=== PATIENT | female | born 1935 | race Caucasian/White ===

== ENCOUNTER 2016-06-05 20:33 | Observation (INO) ==
[2016-06-05] MEDS ORDERED: ONDANSETRON 4 MG/2 ML VIAL IV STA (21:01)
[2016-06-05] MEDS ORDERED: METOCLOPRAMIDE 10 MG/2 ML VIAL IV STA (21:01)
--- NOTE | 2016-06-05 21:14 | EKG Report ---
Please refer to the EKG image. Final interpretation is pending.
[2016-06-05 21:16] LABS: Basophils # 0.1 10*3/uL (0.0-0.2); Basophils % 0.6 % (0.0-0.8); Eosinophils # 0.1 10*3/uL (0.0-0.87); Eosinophils % 1.5 % (0.00-10.9); Hematocrit 39.5 VOL% (35.7-47.0); Hemoglobin 12.5 GM/DL (12.0-16.0); Immature Granulocytes % 0.2 %; Immature Granulocytes Absolute 0.02 #; Lymphocytes # 1.9 10*3/uL (1.4-4.0); Lymphocytes % 23.8 % (21.3-54.2); Mean Corpuscular HGB Conc 31.6 GM/DL (32-36); Mean Corpuscular Hemoglobin 28 PG (27-34); Mean Platelet Volume 10.4 FL (9.6-12.0); Monocytes # 0.5 10*3/uL (0.11-0.8); Monocytes % 6.7 % (1.7-12.7); Neutrophils # 5.4 10*3/uL (1.4-7.4); Neutrophils % 67.2 % (38.7-73.9); Platelet Count 253 T/CUMM (130-400); Red Blood Count 4.49 MC/CUMM (3.8-5.5); Red Cell Distribution Width 14.1 % (9.3-17.3)
--- NOTE | 2016-06-05 21:20 | Emergency Department Note ---
Arrival - Arrival Chief Complaint: Neuro Stated Complaint: Possible Stroke ED Nursing Triage Note: c/c at 19:30 pt states she got up from chair and felt very weak/unsteady gait, dizziness, had trouble with thought process. Had trouble concentrating. Pt states she feels a little better but not completely normal. Pt has history of TIA's. Memory was affected by previous TIA's. Mode of Arrival: Wheelchair Limitations: No Limitations Source: Patient Time Seen by Provider: 06/05/16 21:00 - History of Present Illness HPI Narrative: This 81-year-old white female presents with complaints of getting up from her chair to prepare dinner when she felt very weak, dizzy, and had an unsteady gait. She states that she had problems likewise with thought processes and concentrating. She feels somewhat better now and does have a history of several TIAs in the past. She does associate some shortness of breath and nausea transiently when she first got out of the chair but no complaints of chest pain or diaphoresis. Of note she took a [place] about a half hour before she sat down because of foot pain. Currently she is alert and oriented 3. Onset (ago): hour(s) (Patient presents 2 hours post onset of symptoms) Allergies/Adverse Reactions: Allergies Allergy/AdvReac Type Severity Reaction Status Date / Time Sulfa (Sulfonamide Allergy Unknown/Unable Verified 06/05/16 20:44 Antibiotics) to obtain Home Medications: Home Medications Medication Instructions Recorded Confirmed Type PARoxetine [Paxil] 20 mg PO DAILY 10/10/14 06/05/16 History Pravastatin [Pravachol] 40 mg PO DAILY 10/10/14 06/05/16 History Tolterodine LA [Detrol LA] 4 mg PO DAILY 10/10/14 06/05/16 History Aspirin EC Tab 325 mg PO DAILY 05/27/16 06/05/16 History Diltiazem HCl [Dilt-Xr] 180 mg PO DAILY 05/27/16 06/05/16 History Furosemide Tab [Lasix Tab] 20 mg PO BID DIURETIC 05/27/16 06/05/16 History Hydrocodone/Acetaminophen 1 each PO DAILY 05/27/16 06/05/16 History [Hydrocodon-Acetaminophen 5-325] Lactulose 10 - 20 ml PO BEDTIME PRN 05/27/16 06/05/16 History Omeprazole 20 mg PO DAILY 05/27/16 06/05/16 History Potassium Chloride Cap/Tab [K Dur] 20 meq PO DAILY 05/27/16 06/05/16 History Promethazine Tab [Phenergan Tab] 25 mg PO Q6H PRN 05/27/16 06/05/16 History metFORMIN [Glucophage] 500 mg PO BID W/MEALS 05/27/16 06/05/16 History rOPINIRole [Requip] 0.25 mg PO BEDTIME 05/27/16 06/05/16 History Polyethylene Glycol Powder 17 gm PO DAILY #30 05/28/16 06/05/16 Rx [Miralax] Review of System - Review of System 12 point system: reviewed and no additional remarkable complaints except as stated - Review of System Constitutional: Present: as per HPI Respiratory: Present: as per HPI Cardiovascular: Present: as per HPI Gastrointestinal: Present: as per HPI Neurological: Present: as per HPI Medical,Surgical,& Family Hx - Medical History Cardio: History of: Cardiac Dysrhythmia (AFIB), CAD, Pacemaker Neurology: History of: Cerebrovascular Accident (3), TIA Endocrine: History of: Diabetes Mellitus (NIDDM) Genitourinary: History of: Recurring Urinary Tract Infections Gastrointestinal: History of: Diverticulitis/ Diverticulosis, GERD, GI Problems (constipation) Musculoskeletal: History of: Musculoskeletal Problems (arthritis) Hematology: History of: Anemia, Bleeding Problems (40yrs ago bleeding ulcers in stomach) Other: History of: Cancer (uterine cancer 1968) - Surgical History Cardiac Surgeries: Sugical HX of: Cardiac Catheterization Abdominal Surgeries: Surgical HX of: Abdominal Surgery, Cholecystectomy Reproductive Surgeries: Surgical HX of;: Hysterectomy Orthopedic Surgeries: Surgical HX of;: Total Knee Replacement (x3) - Family History Family History: Reports;: Family Cancer (brother,sister), Family Diabetes (mom, sisters,brothers), Family Hypertension (mother), Family Stroke (mother) - Social History Smoking Status: Former smoker Frequency of Alcohol Use: None Type of Drug Use: None Exam Physical Examination: GENERAL: Well developed, well nourished elderly white female in no acute distress. HEENT: Normocephalic. No trauma. Moist mucous membranes. EOMI. PERRLA. ENT NML NECK: Supple. No adenopathy. CARDIAC: Irregular. No murmurs. Heart rate 88 CHEST: Clear to auscultation. No respiratory distress. O2 sat 95% ABDOMEN: Soft. Nontender. Active bowel sounds. EXTREMITIES: No trauma. Normal ROM. No pedal edema. SKIN: No diaphoresis. No rash. NEURO: Alert. Oriented 3. Motor, sensory, vibratory intact. No nystagmus. No focal deficits. Vital Signs: Vital Signs Temperature 98.7 F 06/05/16 20:36 Pulse Rate 86 06/05/16 20:36 Respiratory Rate 20 06/05/16 20:50 Blood Pressure 135/72 06/05/16 20:36 O2 Sat by Pulse Oximetry 95 06/05/16 20:36 Course - Reevaluation(s) Reevaluation #1: Discussed with family and she is yet to have an MRI of the brain and this being of a chronic nature we will admit overnight for MRI - Consultations Consultation #1: Discussed with hospitalist service who will admit for further evaluation treatment. Results - Labs CBC & BMP: 06/05/16 20:53 06/05/16 20:53 Labs: I reviewed the laboratory noted its gross normality. - Impressions EKG: Atrial fibrillation 88 with right bundle branch block and left anterior block with moderate LVH with diffuse nonspecific ST changes. No acute injury pattern noted. - Diagnostic Findings Procedure: Chest x-ray: image reviewed by me, report reviewed by me, pending ( Cardiomegaly with pacemaker noted no acute disease), CT: image reviewed by me, report reviewed by me (CT head microvascular ischemic disease) Disposition Clinical Impression: TIA Case discussed with: patient, patient's family Disposition: Still a Patient Condition: Stable Time of Disposition: 23:05
[2016-06-05 21:29] LABS: INR 1.1; PT Patient Result 11.2 SECS; Partial Thromboplastin Time 25.9 SECS (0-40)
[2016-06-05 21:36] LABS: Alanine Aminotransferase 15 U/L (13-56); Albumin 3.9 G/DL (3.4-5.0); Alkaline Phosphatase 94 U/L (45-117); Aspartate Amino Transferase 15 U/L (0-37); Blood Urea Nitrogen 19 MG/DL (7-18); Calcium 8.6 MG/DL (8.5-10.1); Glucose 160 MG/DL (74-106); Osmolality,Calculated 283.4 MOS/KG (273-304); Potassium 3.7 MMOL/L (3.5-5.1); Sodium 140 MMOL/L (136-145); Total Protein 7.5 G/DL (6.4-8.3); Troponin I Only < 0.015 NG/ML (0.00-0.045)
--- NOTE | 2016-06-05 21:38 | CT Report ---
Exam: CT scan of brain without contrast Date: 06/05/2016 Indication: Mental status changes Comparison: 10/10/2014 Patient's classification: Emergency department Technical: Images were obtained from the skull base to the vertex without the use of intravenous contrast. Dose reduction was performed with decreasing kv and mA and automated exposure Total DLP: 1012.1 mGy*cm Findings: There is small vessel changes in the periventricular subcortical white matter region. The exam reveals no obvious acute hemorrhage or infarction or mass effect. The ventricles are slightly prominent. The brainstem cerebellum are intact. The paranasal sinuses globes and sella mastoids are intact. Vascular calcification of the vertebral and internal carotid arteries. Impression: 1. Small vessel ischemic change without acute hemorrhage, infarction or mass effect. PROCEDURE INTERPRETED AT [facility] DEPARTMENT OF RADIOLOGY Final Report Signed by: Dr. Meng Mejia
[2016-06-05] MEDS ORDERED: ONDANSETRON 4 MG/2 ML VIAL ONE (22:01)
[2016-06-05] MEDS ORDERED: METOCLOPRAMIDE 10 MG/2 ML VIAL ONE (22:01)
--- NOTE | 2016-06-05 22:03 | XRay Report ---
Exam: XR chest 1V portable Date: 06/05/2016 9:01 PM Indication: Altered mental status Comparison: 10/10/2014 Technical: AP portable Findings: Cardiomegaly is present with a left-sided cardiac pacing device with atrial ventricular leads. No obvious infiltrate or effusion. Lateral marginal osteophytes are present. Previous cholecystectomy clips are present. External cardiac leads are present. No obvious pneumothorax Impression: 1. Cardiomegaly with stable cardiac pacing device without decompensation 2. Previous cholecystectomy PROCEDURE INTERPRETED AT [facility] DEPARTMENT OF RADIOLOGY Final Report Signed by: Dr. Meng Mejia
[2016-06-05 22:26] LABS: Apearance,Urine CLEAR (Clear); Bilirubin,Urine Negative (Negative); Blood, Urine Moderate mg/dL (Negative); Glucose,Urine (UA) Negative (Negative); Hyaline Casts,Urine 5 /LPF (0-3); Ketones,Urine Negative (Negative); Nitrite,Urine Negative (Negative); Protein,Urine Negative; RBC,Urine 4 /HPF (0-4); Urine Color Yellow (Yellow); Urine Specific Gravity 1.009 (1.001-1.035); Urine Urobilinogen < 2.0 EU/DL (0.2-1.0); WBC,Urine 1 /HPF (0-6)
[2016-06-05 22:31] LABS: Barbiturates Screen,Urine Negative (Negative); Benzodiazepines Screen,Urine Negative (Negative); Cannabinoid Screen,Urine Negative (Negative); Opiate Screen,Urine Positive (Negative); Phencyclidine Screen,Urine Negative (Negative)
[2016-06-06] MEDS ORDERED: POLYETHYLENE GLYCOL POWDER 17 GM PACK PO PRN (00:27)
[2016-06-06] MEDS ORDERED: LACTULOSE 20 GM/30 ML UDCUP PO PRN (00:27)
[2016-06-06] MEDS ORDERED: ONDANSETRON 4 MG/2 ML VIAL IV PRN (00:28)
[2016-06-06] MEDS ORDERED: ACETAMINOPHEN 325 MG TABLET PO PRN (00:28)
[2016-06-06] MEDS ORDERED: LABETALOL 20 MG/4 ML SYRINGE IV PRN (00:34)
[2016-06-06] MEDS ORDERED: GLUCAGON 1 MG VIAL IM PRN (00:38)
[2016-06-06] MEDS ORDERED: DEXTROSE 50% 25 GM/50 ML VIAL IV PRN (00:38)
--- NOTE | 2016-06-06 00:43 | Hospitalist History & Physical ---
Assessment and Plan (1) Transient ischemic attack, acute Status: Acute Current Visit: Yes (2) Dysarthria Status: Acute Current Visit: Yes (3) Positive urine drug screen Status: Acute Current Visit: Yes (4) Chronic atrial fibrillation Status: Acute Current Visit: Yes (5) Pacemaker Status: Acute Current Visit: Yes (6) Type 2 diabetes mellitus Status: Acute Current Visit: Yes (7) History of TIA (transient ischemic attack) Status: Acute Assessment and plan: Plan: Stroke workup, excluding MRI due to pacemaker. Will obtain carotid Dopplers, CT angiogram of the head and neck. Get most recent echo from Dr. Holland's records. Hold opioid medication, according to patient and daughter patient rarely takes this. Could be contributing factor to her symptoms. Observe on heart monitor Resume home medication as appropriate, otherwise supportive care. Current Visit: Yes History of Present Illness Chief complaint: Weakness starting around 4:30 PM History of present illness: Ms. Chapman is a 81 year old female with history of A. 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 She states she woke up with nausea but no vomiting. She did not fall, she denies vertigo. She denies unilateral weakness, headache, or vision loss. Apparently, a few hours later she called her daughter at which time the daughter reports she had slurred speech and she was brought to the emergency room. Daughter also reports the patient had to use her 's walker, "which she never has in the past." Additionally she has significant arthritis and very rarely takes opioid medication, which was found on drug screen. According to the daughter it is unclear whether this caused her slurred speech and generalized weakness. CT in the ER does not show acute bleed or stroke. She denies chest pain, difficulty breathing, abdominal pain, or diarrhea. No fever chills or cough. Home Medications Medication Instructions Recorded Confirmed Type PARoxetine [Paxil] 20 mg PO DAILY 10/10/14 06/05/16 History Pravastatin [Pravachol] 40 mg PO DAILY 10/10/14 06/05/16 History Tolterodine LA [Detrol LA] 4 mg PO DAILY 10/10/14 06/05/16 History Aspirin EC Tab 325 mg PO DAILY 05/27/16 06/05/16 History Diltiazem HCl [Dilt-Xr] 180 mg PO DAILY 05/27/16 06/05/16 History Furosemide Tab [Lasix Tab] 20 mg PO BID DIURETIC 05/27/16 06/05/16 History Hydrocodone/Acetaminophen 1 each PO DAILY 05/27/16 06/05/16 History [Hydrocodon-Acetaminophen 5-325] Lactulose 10 - 20 ml PO BEDTIME PRN 05/27/16 06/05/16 History Omeprazole 20 mg PO DAILY 05/27/16 06/05/16 History Potassium Chloride Cap/Tab [K Dur] 20 meq PO DAILY 05/27/16 06/05/16 History Promethazine Tab [Phenergan Tab] 25 mg PO Q6H PRN 05/27/16 06/05/16 History metFORMIN [Glucophage] 500 mg PO BID W/MEALS 05/27/16 06/05/16 History rOPINIRole [Requip] 0.25 mg PO BEDTIME 05/27/16 06/05/16 History Polyethylene Glycol Powder 17 gm PO DAILY #30 05/28/16 06/05/16 Rx [Miralax] Allergies Allergy/AdvReac Type Severity Reaction Status Date / Time Sulfa (Sulfonamide Allergy Unknown/Unable Verified 06/05/16 20:44 Antibiotics) to obtain Medical,Surgical,& Family Hx - Medical History Cardio: History of: Cardiac Dysrhythmia (AFIB), CAD, Pacemaker Neurology: History of: Cerebrovascular Accident (Reported history of "TIAs", old basal ganglia infarcts reported on [address] ), TIA Endocrine: History of: Diabetes Mellitus (NIDDM) Genitourinary: History of: Recurring Urinary Tract Infections Gastrointestinal: History of: Diverticulitis/ Diverticulosis, GERD, GI Problems (constipation) Musculoskeletal: History of: Musculoskeletal Problems (arthritis) Hematology: History of: Anemia, Bleeding Problems (40yrs ago bleeding ulcers in stomach) Other: History of: Cancer (uterine cancer 1968) - Surgical History Cardiac Surgeries: Sugical HX of: Cardiac Catheterization Abdominal Surgeries: Surgical HX of: Abdominal Surgery, Cholecystectomy Reproductive Surgeries: Surgical HX of;: Hysterectomy Orthopedic Surgeries: Surgical HX of;: Total Knee Replacement (x3) - Family History Family History: Reports;: Family Cancer (brother,sister), Family Diabetes (mom, sisters,brothers), Family Hypertension (mother), Family Stroke (mother) - Social History Smoking Status: Former smoker Have you smoked in the last 12 months: No Frequency of Alcohol Use: None Type of Drug Use: None Marital Status: Lives With:: Spouse Functional capacity: independent ambulation Review of systems: A 12 point review of systems is negative except as specified in the HPI Exam - Constitutional Vitals: Period Temp Pulse Resp BP Sys/[place] Pulse Ox Last 24 Hr 98.7 F-98.7 F 67-86 13-20 119-135/57-91 95-98 Exam: EXAM: CONSTITUTIONAL: Drowsy, easily arousable, non toxic, NAD HEENT: NC, AT, OP benign, MORGAN, EOMI CV: Irregular, no m/g/r, device pocket benign RESP: clear B/L, no w/r/r GI: abd soft, NT, ND, +bowel sounds INTEGUMENTARY: no lesions or rash EXTREMITIES: no c/c/e NEURO: No focal weakness bilateral upper and lower extremities, sensation intact , no cranial nerve deficits PSYCH: Arousable, alert and oriented Results - Labs CBC & BMP: 06/05/16 20:53 06/05/16 20:53 Lab Results: I have reviewed the past 24 hour labs - EKG EKG shows: atrial fibrillation - Diagnostic Findings Procedure: CT: image reviewed by me, report reviewed by me Quality Measures - Stroke Onset of Symptoms Date: 06/05/16 Onset of Symptoms Time: 19:00 Symptom Onset Unknown: Yes
[2016-06-06] MEDS ORDERED: SODIUM CHLORIDE 0.45% 1,000 ML IV SCH (01:00)
[2016-06-06 03:52] LABS: Basophils % 0.5 % (0.0-0.8); Eosinophils # 0.1 10*3/uL (0.0-0.87); Hematocrit 33.8 VOL% (35.7-47.0); Immature Granulocytes % 0.3 %; Immature Granulocytes Absolute 0.02 #; Lymphocytes # 2.1 10*3/uL (1.4-4.0); Lymphocytes % 26.6 % (21.3-54.2); Mean Corpuscular HGB Conc 32.5 GM/DL (32-36); Mean Corpuscular Hemoglobin 28 PG (27-34); Mean Corpuscular Volume 86.7 FL (87-102); Mean Platelet Volume 11.1 FL (9.6-12.0); Monocytes # 0.7 10*3/uL (0.11-0.8); Monocytes % 8.9 % (1.7-12.7); Neutrophils # 4.9 10*3/uL (1.4-7.4); Neutrophils % 62.7 % (38.7-73.9); Platelet Count 243 T/CUMM (130-400); Red Cell Distribution Width 14.3 % (9.3-17.3); White Blood Count 7.9 T/CUMM (4-12)
[2016-06-06 04:17] LABS: Calcium 8.6 MG/DL (8.5-10.1)
[2016-06-06 04:22] LABS: Risk Ratio 2.39; VLDL CHOLESTEROL 13.2 MG/DL
--- NOTE | 2016-06-06 07:41 | Ultrasound Report ---
Bilateral carotid Doppler. Indication: Carotid bruit. Grayscale, color-flow, and spectral analysis performed and interpreted. Mild arthritic changes seen in each carotid bulb. The right internal carotid artery peak systolic velocity is 118 cm/s, with an IC/CC ratio of 2.2. The left internal carotid artery peak systolic velocity is 127 cm/s, with an IC/CC ratio 1.3. There is antegrade flow within each vertebral artery. Impression: Using NASCET criteria, findings consistent with internal carotid artery stenosis, approaching 50%. Clinical correlation with direct imaging by CTA or MRA is recommended. PROCEDURE INTERPRETED AT [facility] DEPARTMENT OF RADIOLOGY Final Report Signed by: Dr. Siomara Humphrey
[2016-06-06] MEDS: INSULIN REGULAR 100 UNIT/ML SUBCUT SCH ×4 (09:01→21:46)
[2016-06-06] MEDS: PANTOPRAZOLE 40 MG TABLET PO SCH (09:04)
[2016-06-06] MEDS: POTASSIUM CHLORIDE 20 MEQ TABLET PO SCH (09:04)
[2016-06-06] MEDS: DILTIAZEM CD 180 MG CAPSULE PO SCH (09:04)
[2016-06-06] MEDS: TOLTERODINE LA 4 MG CAPSULE PO SCH (09:04)
[2016-06-06] MEDS: ASPIRIN EC 325 MG TABLET PO SCH (09:04)
[2016-06-06] MEDS: PRAVASTATIN 40 MG TABLET PO SCH (09:04)
[2016-06-06] MEDS: PARoxetine 20 MG TABLET PO SCH (09:04)
[2016-06-06] MEDS: FUROSEMIDE 20 MG TABLET PO SCH ×2 (09:04→17:08)
--- NOTE | 2016-06-06 12:46 | CT Report ---
CT angio head, CT angio neck Indication: TIA. CT ANGIOGRAM [place] DLP: 1012 mGy*cm. One or more of the following dose reduction techniques was used: Automated exposure control, adjustment of the mA and/or kV according the patient size, or use of iterative reconstruction techniques. Technique: Axial thin cut CT images were obtained from the skull base to the vertex during arterial phase of contrast injection. 3-D vascular MIPs reconstructions and multiplanar reformats were evaluated. Omnipaque 350, 80 cc given. Comparison: None. Findings: Calcified atheromatous disease of the left vertebral artery identified. Left vertebral artery is much larger than the right. Both terminate in the basilar artery. Atheromatous disease of the basilar artery is present but mild in severity. Basilar artery is otherwise widely patent. No aneurysmal change shown. Densely calcified atheromatous disease of the cavernous and supraclinoid portion of both internal carotid arteries noted. No critical stenosis suspect. Atheromatous plaque of the right M1 segment of the MCA is present as well. Both M1 segments of the MCA vessels show a undulating but subtle "string of beads" type pattern which appears to extend into some of the smaller peripheral branches including M2 segments. Similar subtle "string of bead" type pattern involves the left A1 segment of the IFEANYI vascular territory. No flow cut off or intracranial aneurysmal disease is shown. Please be aware this "string of beads" pattern does not include the extracranial internal carotid arteries, details below. Impression: 1. "String of beads" pattern of the bilateral M1 and M2 segments of the MCA vasculature, and left A1 segment of the IFEANYI. Differential is fibromuscular dysplasia versus vasculitis. 2. Intracranial atheromatous disease is present including the left vertebral, basilar, bilateral internal carotid arteries and right MCA as described. CT ANGIOGRAM CAROTID ARTERIES DLP: 1012 mGy*cm. One or more of the following dose reduction techniques was used: Automated exposure control, adjustment of the mA and/or kV according the patient size, or use of iterative reconstruction techniques. Technique: Axial thin cuts CT images were obtained from the aortic arch through the skull base during the arterial phase of contrast injection. 3-D vascular MIPs reconstructions and multiplanar reformats were evaluated. Omnipaque 350, 80 cc given. Comparison: None. Findings: Severity of stenosis based on NASCET criteria. Reference downstream ICA diameters are 4.3 mm on the right and 4.7 mm the left. Although mild atheromatous disease is present at both carotid bifurcations, there is no measurable stenosis. Vascular tortuosity is present with bilateral ICA redundancy noted proximally. No intimal irregularities of either internal carotid artery are identified to suggest extracranial FMD. No dissection or aneurysm shown. Both common carotid arteries are tortuous but patent. The proximal right common carotid artery is obscured by contrast in the adjacent right subclavian vein. Densely calcified atheromatous disease at the origin of the right subclavian artery is present with less than 50% diameter stenosis noted. Aortic arch is minimally elongated but no dissection or aneurysm shown. Mild atheromatous plaque is present. Great vessel origins are within normal limits. The vertebral arteries are bilaterally patent, left-sided dominant. Both terminate in the basilar system. Emphysematous changes involve the pulmonary apices which appear otherwise clear. No superior mediastinal or cervical chain lymphadenopathy. Degenerative changes cervical spine noted. Visualized sinuses and mastoid air cells are clear. Impression: 1. No measurable stenosis of either ICA origin. 2. Vascular tortuosity as described. Redundancy of both internal carotid arteries noted. This may an isolated finding, or may be seen in conjunction with FMD, although no classic findings of FMD are identified in the extracranial vascular territories. 3. Mild pulmonary emphysema. PROCEDURE INTERPRETED AT [facility] DEPARTMENT OF RADIOLOGY Final Report Signed by: Jose Matthews M.D.
--- NOTE | 2016-06-06 15:45 | Event Note ---
Patient gone for radiological testing
[2016-06-06] MEDS ORDERED: rOPINIRole 0.25 MG TABLET PO SCH (21:00)
[2016-06-06] MEDS ORDERED: MAGNESIUM HYDROXIDE SUSP 30 ML UDCUP ONE (21:42)
[2016-06-07] MEDS: INSULIN REGULAR 100 UNIT/ML SUBCUT SCH ×2 (10:07→12:43)
[2016-06-07] MEDS: PARoxetine 20 MG TABLET PO SCH (10:08)
[2016-06-07] MEDS: TOLTERODINE LA 4 MG CAPSULE PO SCH (10:08)
[2016-06-07] MEDS: FUROSEMIDE 20 MG TABLET PO SCH ×2 (10:08→17:04)
[2016-06-07] MEDS: POTASSIUM CHLORIDE 20 MEQ TABLET PO SCH (10:08)
[2016-06-07] MEDS: PANTOPRAZOLE 40 MG TABLET PO SCH (10:08)
[2016-06-07] MEDS: ASPIRIN EC 325 MG TABLET PO SCH (10:08)
[2016-06-07] MEDS: PRAVASTATIN 40 MG TABLET PO SCH (10:08)
[2016-06-07] MEDS: DILTIAZEM CD 180 MG CAPSULE PO SCH (10:08)
[2016-06-07 10:58] VITALS: BP 141/74
--- NOTE | 2016-06-07 14:49 | Discharge Summary ---
Hospital Course - Hospital Course Hospital Course: Mrs Chapman presented with weakness, slurred speech and not acting like herself. Earlier she had taken both promethazine and norco which she had never taken together. Her daughter was with her. She was observed and her symptoms resolved. Head CT looked ok. Head and neck CTA showed vascular tortuosity. Dr Campos saw her and her studies and feels she had a delirium from the [facility]. She will return home today as she requests- she needs some PT for general weakness and is planning to go to outpatient therapy at [facility]. 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 Diagnosis - Discharge Diagnosis (1) Nausea & vomiting Status: Resolved (2) Generalized weakness Status: Acute (3) Positive urine drug screen Status: Acute (4) Chronic atrial fibrillation Status: Chronic (5) Pacemaker Status: Chronic (6) Type 2 diabetes mellitus Status: Chronic (7) Encephalopathy Status: Resolved Specialty Discharge - Follow Up or Referrals Follow up with: your, PCP [Other] - 1 Week Forrest Holland MD [Physician] - your, GI doctor [Other] (poor esophageal motility on swallow study) Discharge Plan - Discharge Data Disposition: Disch To Home/Self Care Condition at Discharge: Stable Discharge Diet: advance to your usual diet Activity: resume usual activities as tolerated - Discharge Medications Continue Tolterodine LA [Detrol LA] 4 mg PO DAILY Pravastatin [Pravachol] 40 mg PO DAILY PARoxetine [Paxil] 20 mg PO DAILY Aspirin EC Tab 325 mg PO DAILY Lactulose 10 - 20 ml PO BEDTIME PRN PRN Reason: Constipation Potassium Chloride Cap/Tab [K Dur] 20 meq PO DAILY Furosemide Tab [Lasix Tab] 20 mg PO BID DIURETIC Omeprazole 20 mg PO DAILY Diltiazem HCl [Dilt-Xr] 180 mg PO DAILY Polyethylene Glycol Powder [Miralax] 17 gm PO DAILY #30 metFORMIN [Glucophage] 500 mg PO BID W/MEALS rOPINIRole [Requip] 0.25 mg PO BEDTIME Discontinued Promethazine Tab [Phenergan Tab] 25 mg PO Q6H PRN PRN Reason: Nausea/Vomiting Hydrocodone/Acetaminophen [Hydrocodon-Acetaminophen 5-325] 1 each PO DAILY - Follow Up or Referral Follow Up: your, PCP [Other] - 1 Week Forrest Holland MD [Physician] - - Forms/Instructions Additional Discharge Instructions: outpatient PT at [facility]. Exam - Constitutional Vitals: Period Temp Pulse Resp BP Sys/[place] Pulse Ox Last 24 Hr 97.4 F-98.9 F 62-87 16-18 129-157/65-91 90-97 General appearance: normal weight, no acute distress - Head Head exam: Present: normocephalic, atraumatic - Eye Eye exam: Present: EOMI. Absent: scleral icterus Pupils: Present: MORGAN - Respiratory Respiratory exam: Present: clear to auscultation bilaterally - Cardiovascular Cardiovascular exam: Present: regular rate and rhythm - GI/Abdominal GI/Abdominal exam: Present: normal bowel sounds, soft. Absent: tenderness - Extremities Exam Extremities exam: Absent: edema - Neurological Exam Neurological exam: Present: alert, oriented X3, CN II-XII intact. Absent: motor sensory deficit Discharge Results Labs on day of discharge: Labs from last 24 hours 06/07/16 06/07/16 06/06/16 10:41 07:40 20:04 POC Glucose 231 H 147 H 169 H 06/06/16 15:43 POC Glucose 136 H DS: Provider Date of admission: 06/06/16 00:34 Primary care physician: Kevin Ba DO Attending physician on admission: Shagufta Rollins MD Consults: 06/06/16 01:31 Consult to Dietitian [CONS] Routine Reason for Dietitian: Dietary Consult 06/07/16 14:40 Consult to Case Mgmt/Social Srvs [CONS] Routine Reason for Case Mgmt/Social Srvs: Other Consult Comment: outpatient pt at [facility] Discharging clinician: Shagufta Rollins MD
--- NOTE | 2016-06-07 14:50 | Neurology Consult Note ---
History of Present Illness History of present illness: Ms. 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 Patient reported that she has arthritis and take pain medications some 3 times a week which is [place]. Patient reported that she took [place] and also took some nausea medication at the same time. 30 Minutes later she started feeling weak and weird. Daughter reported that she sounded very tired and fatigued and there was a question of slurred speech. She was brought into the hospital. A CT of the head reveals no acute abnormalities. CT angiogram of the neck is unremarkable. CT of the head revealed possible fibromuscular dysplasia. Patient is back to her baseline now. Her neuro exam is nonfocal Home Medications Medication Instructions Recorded Confirmed Type PARoxetine [Paxil] 20 mg PO DAILY 10/10/14 06/05/16 History Pravastatin [Pravachol] 40 mg PO DAILY 10/10/14 06/05/16 History Tolterodine LA [Detrol LA] 4 mg PO DAILY 10/10/14 06/05/16 History Aspirin EC Tab 325 mg PO DAILY 05/27/16 06/05/16 History Diltiazem HCl [Dilt-Xr] 180 mg PO DAILY 05/27/16 06/05/16 History Furosemide Tab [Lasix Tab] 20 mg PO BID DIURETIC 05/27/16 06/05/16 History Lactulose 10 - 20 ml PO BEDTIME PRN 05/27/16 06/05/16 History Omeprazole 20 mg PO DAILY 05/27/16 06/05/16 History Potassium Chloride Cap/Tab [K Dur] 20 meq PO DAILY 05/27/16 06/05/16 History metFORMIN [Glucophage] 500 mg PO BID W/MEALS 05/27/16 06/05/16 History rOPINIRole [Requip] 0.25 mg PO BEDTIME 05/27/16 06/05/16 History Polyethylene Glycol Powder 17 gm PO DAILY #30 05/28/16 06/05/16 Rx [Miralax] Allergies Allergy/AdvReac Type Severity Reaction Status Date / Time Sulfa (Sulfonamide Allergy Unknown/Unable Verified 06/05/16 20:44 Antibiotics) to obtain 12 point system: reviewed and no additional remarkable complaints except as stated Medical,Surgical,& Family Hx - Medical History Cardio: History of: Cardiac Dysrhythmia (AFIB), CAD, Pacemaker Neurology: History of: Cerebrovascular Accident (Reported history of "TIAs", old basal ganglia infarcts reported on [address] ), TIA Endocrine: History of: Diabetes Mellitus (NIDDM) Genitourinary: History of: Recurring Urinary Tract Infections Gastrointestinal: History of: Diverticulitis/ Diverticulosis, GERD, GI Problems (constipation) Musculoskeletal: History of: Musculoskeletal Problems (arthritis) Hematology: History of: Anemia, Bleeding Problems (40yrs ago bleeding ulcers in stomach) Other: History of: Cancer (uterine cancer 1969) - Surgical History Cardiac Surgeries: Sugical HX of: Cardiac Catheterization Abdominal Surgeries: Surgical HX of: Abdominal Surgery, Cholecystectomy Reproductive Surgeries: Surgical HX of;: Hysterectomy Orthopedic Surgeries: Surgical HX of;: Total Knee Replacement (x3) - Family History Family History: Reports;: Family Cancer (brother,sister), Family Diabetes (mom, sisters,brothers), Family Hypertension (mother), Family Stroke (mother) - Social History Smoking Status: Former smoker Frequency of Alcohol Use: None Type of Drug Use: None Exam - Constitutional Vitals: Period Temp Pulse Resp BP Sys/[place] Pulse Ox Last 24 Hr 97.4 F-98.9 F 62-87 16-18 129-157/65-91 90-97 Exam: GENERAL: Patient is in no acute distress. NECK: Neck is supple. There is no JVD. No carotid bruits present. No thyroid masses. CVS: First and second heart sounds are normal. There is no S3 present. Regular rate and rhythm. RESPIRATORY: Lungs are clear to auscultation without any rales or rhonchi. ABDOMEN: Soft and non-tender. Bowel sounds are present. There is no hepatosplenomegaly. EXT: There is no palpable edema. Peripheral pulses are present. Skin: No rashes Central Nervous system: General: Alert, awake and Oriented x 3 Speech: Fluent Comprehension: Intact and normal Facial expressions: Normal Cranial Nerves: CN1/Olfactory: Normal CN II/ Optic: Normal, Visual Ulrich unreliable CN III, and : MORGAN & EOMI CN V: Normal & intact CN VII: face is symmetric CNVIII: Normal CN XI/X/XI/XII: Intact and Normal Motor: Bulk and Tone is normal. Strength in the right 5/5 Strength in the left 5/5 Sensory: Grossly intact for all the modalities of PP, LT and temp sense Reflexes: 1+ and symmetrical Cerebellar function: Normal finger to nose and heel to ferguson testing. Toes: Equivocal Gait: Normal Results - Labs CBC & BMP: 06/06/16 03:05 06/06/16 03:05 Assessment and Plan (1) Encephalopathy Status: Acute Assessment and plan: Likely due to medication side effects. No evidence of stroke, TIAs, seizures. Continue aspirin a day from neuro standpoint Okay to go home when okay with PCP Current Visit: Yes Specialty Discharge - Follow Up or Referrals Follow up with: your, PCP [Other] - 1 Week Forrest Holland MD [Physician] -
== END 2016-06-07 17:17 | disposition home or self-care (01) ==
LOC: N.ED 20:33 → N.EDINP 20:33 → N.5E 06-06 00:49
PROVIDERS: ADMIT Internal Medicine; ATTEND Internal Medicine

== ENCOUNTER 2019-07-21 10:43 | Inpatient (IN) ==
[2019-07-21] MEDS ORDERED: DILTIAZEM 50 MG/10 ML VIAL IV STA (11:18)
[2019-07-21 12:01] LABS: Basophils # 0.1 10*3/uL (0.0-0.2); Basophils % 0.5 % (0.0-0.8); Eosinophils # 0.1 10*3/uL (0.0-0.87); Eosinophils % 0.6 % (0.00-10.9); Hematocrit 36.7 VOL% (35.7-47.0); Hemoglobin 11.7 GM/DL (12.0-16.0); Immature Granulocytes % 0.5 %; Immature Granulocytes Absolute 0.06 #; Lymphocytes # 1.8 10*3/uL (1.4-4.0); Lymphocytes % 15.7 % (21.3-54.2); Mean Corpuscular HGB Conc 31.9 GM/DL (32-36); Mean Corpuscular Volume 85.3 FL (87-102); Mean Platelet Volume 10.1 FL (9.6-12.0); Monocytes % 7.3 % (1.7-12.7); Neutrophils % 75.4 % (38.7-73.9); Platelet Count 294 T/CUMM (130-400); Red Cell Distribution Width 14.5 % (9.3-17.3); White Blood Count 11.4 T/CUMM (4-12)
[2019-07-21 12:09] LABS: INR 1.1; PT Patient Result 11.4 SECS (9.8-11.9)
[2019-07-21 12:18] LABS: Apearance,Urine Slightly Hazy (Clear); Bilirubin,Urine Negative (Negative); Blood, Urine Small mg/dL (Negative); Glucose,Urine (UA) Negative (Negative); Ketones,Urine 5 mg/dL (Negative); Nitrite,Urine Negative (Negative); Protein,Urine 100 MG/DL; RBC,Urine 20 /HPF (0-4); Urine Color Yellow (Yellow); Urine Specific Gravity 1.012 (1.001-1.035); WBC,Urine 2 /HPF (0-6)
[2019-07-21 12:26] LABS: Albumin 3.7 G/DL (3.4-5.0); Bilirubin,Total 0.7 MG/DL (0.2-1.0); Calcium 9.1 MG/DL (8.5-10.1); Osmolality,Calculated 271.4 MOS/KG (273-304); Total Protein 7.5 G/DL (6.4-8.3)
[2019-07-21] MEDS: dilTIAZem Drip 125 MG/125 ML PREMIX IV SCH (12:32)
[2019-07-21] MEDS ORDERED: POTASSIUM CHLORIDE 20 MEQ TABLET PO STA (13:21)
[2019-07-21] MEDS ORDERED: METOPROLOL TARTRATE 25 MG TABLET PO STA (14:13)
[2019-07-21] MEDS ORDERED: MAGNESIUM SULF RIDER 4 GM in PREMIX 1 EACH IV STA (14:13)
[2019-07-21] MEDS ORDERED: ACETAMINOPHEN 325 MG TABLET PO PRN (14:17)
[2019-07-21] MEDS ORDERED: ONDANSETRON 4 MG/2 ML VIAL IV PRN (14:17)
[2019-07-21] MEDS ORDERED: DEXTROSE 10% 250 ML BAG IV PRN (14:17)
[2019-07-21] MEDS ORDERED: GLUCAGON 1 MG VIAL IM PRN (14:17)
[2019-07-21] MEDS: FUROSEMIDE 20 MG TABLET PO SCH (18:00)
[2019-07-21] MEDS: METOPROLOL TARTRATE 25 MG TABLET PO SCH (21:31)
[2019-07-22] MEDS: dilTIAZem Drip 125 MG/125 ML PREMIX IV SCH (03:06)
[2019-07-22 07:45] LABS: Basophils % 0.3 % (0.0-0.8); Eosinophils % 0.2 % (0.00-10.9); Hematocrit 34.3 VOL% (35.7-47.0); Hemoglobin 10.7 GM/DL (12.0-16.0); Immature Granulocytes % 0.5 %; Immature Granulocytes Absolute 0.06 #; Lymphocytes # 0.9 10*3/uL (1.4-4.0); Lymphocytes % 7.1 % (21.3-54.2); Mean Corpuscular HGB Conc 31.2 GM/DL (32-36); Mean Platelet Volume 10.3 FL (9.6-12.0); Monocytes % 9.1 % (1.7-12.7); Neutrophils % 82.8 % (38.7-73.9); Platelet Count 265 T/CUMM (130-400); Red Blood Count 3.99 MC/CUMM (3.8-5.5); Red Cell Distribution Width 14.5 % (9.3-17.3); White Blood Count 12.4 T/CUMM (4-12)
[2019-07-22 08:27] LABS: Albumin 3.2 G/DL (3.4-5.0); Calcium 8.6 MG/DL (8.5-10.1); Thyroid Stimulating Hormone 2.31 uIU/ml (0.358-3.74); Total Protein 6.7 G/DL (6.4-8.3)
[2019-07-22] MEDS ORDERED: OXYMETAZOLINE 0.05% NASAL SPRAY 15 ML BOTTLE BOTH NARES PRN (08:32)
[2019-07-22] MEDS: SIMVASTATIN 20 MG TABLET PO SCH (09:19)
[2019-07-22] MEDS: PARoxetine 20 MG TABLET PO SCH (09:19)
[2019-07-22] MEDS: OXYBUTYNIN XL 10 MG TABLET PO SCH (09:20)
[2019-07-22] MEDS: DILTIAZEM CD 240 MG CAPSULE PO SCH (09:21)
[2019-07-22] MEDS: ASPIRIN EC 81 MG TABLET PO SCH (09:21)
[2019-07-22] MEDS: PANTOPRAZOLE 40 MG TABLET PO SCH (09:22)
[2019-07-22] MEDS: METOPROLOL TARTRATE 25 MG TABLET PO SCH ×2 (09:22→22:16)
[2019-07-22] MEDS: FUROSEMIDE 20 MG TABLET PO SCH ×2 (09:23→17:40)
[2019-07-22] MEDS: APIXABAN 2.5 MG TABLET PO SCH (22:16)
[2019-07-23 06:37] LABS: Basophils % 0.2 % (0.0-0.8); Eosinophils # 0.1 10*3/uL (0.0-0.87); Eosinophils % 0.8 % (0.00-10.9); Hematocrit 35.6 VOL% (35.7-47.0); Hemoglobin 11.1 GM/DL (12.0-16.0); Immature Granulocytes % 0.4 %; Immature Granulocytes Absolute 0.04 #; Lymphocytes # 1.4 10*3/uL (1.4-4.0); Lymphocytes % 15.1 % (21.3-54.2); Mean Corpuscular HGB Conc 31.2 GM/DL (32-36); Mean Corpuscular Volume 86.6 FL (87-102); Mean Platelet Volume 10.9 FL (9.6-12.0); Monocytes % 8.7 % (1.7-12.7); Neutrophils % 74.8 % (38.7-73.9); Platelet Count 277 T/CUMM (130-400); Red Blood Count 4.11 MC/CUMM (3.8-5.5); Red Cell Distribution Width 14.5 % (9.3-17.3); White Blood Count 9.2 T/CUMM (4-12)
[2019-07-23 06:57] LABS: Albumin 3.2 G/DL (3.4-5.0); Bilirubin,Total 0.6 MG/DL (0.2-1.0); Calcium 8.5 MG/DL (8.5-10.1); Osmolality,Calculated 276.8 MOS/KG (273-304); Total Protein 7.1 G/DL (6.4-8.3)
[2019-07-23] MEDS ORDERED: MAGNESIUM SULF RIDER 4 GM in PREMIX 1 EACH IV PRN (07:39)
[2019-07-23] MEDS ORDERED: MAGNESIUM SULF RIDER 2 GM in PREMIX 1 EACH IV PRN (07:39)
[2019-07-23] MEDS ORDERED: POTASSIUM CHLORIDE RIDER 10 MEQ in PREMIX 1 EACH IV PRN (07:39)
[2019-07-23] MEDS: SIMVASTATIN 20 MG TABLET PO SCH (08:51)
[2019-07-23] MEDS: METOPROLOL TARTRATE 25 MG TABLET PO SCH ×2 (08:51→21:33)
[2019-07-23] MEDS: POTASSIUM CHLORIDE 20 MEQ TABLET PO PRN ×2 (08:53→14:17)
[2019-07-23] MEDS: DILTIAZEM CD 240 MG CAPSULE PO SCH (08:53)
[2019-07-23] MEDS: FUROSEMIDE 20 MG TABLET PO SCH ×2 (08:54→16:37)
[2019-07-23] MEDS: ASPIRIN EC 81 MG TABLET PO SCH (08:55)
[2019-07-23] MEDS: OXYBUTYNIN XL 10 MG TABLET PO SCH (08:55)
[2019-07-23] MEDS: PARoxetine 20 MG TABLET PO SCH (08:55)
[2019-07-23] MEDS: APIXABAN 2.5 MG TABLET PO SCH ×2 (08:55→21:34)
[2019-07-23] MEDS: PANTOPRAZOLE 40 MG TABLET PO SCH (08:56)
[2019-07-23 20:40] LABS: Apearance,Urine CLOUDY (Clear); Bacteria,Urine Occasional /HPF (Few); Bilirubin,Urine Negative (Negative); Blood, Urine Large mg/dL (Negative); Glucose,Urine (UA) Negative (Negative); Ketones,Urine Negative (Negative); Mucus,Urine Occasional /LPF (Occasional); Nitrite,Urine Negative (Negative); Protein,Urine Negative; RBC,Urine 15 /HPF (0-4); Squamous Epithelial Cell,Urine Occasional /HPF (0-10); Urine Color Yellow (Yellow); Urine Specific Gravity 1.012 (1.001-1.035); WBC,Urine 27 /HPF (0-6)
[2019-07-24] MEDS: PARoxetine 20 MG TABLET PO SCH (08:43)
[2019-07-24] MEDS: DILTIAZEM CD 240 MG CAPSULE PO SCH (08:43)
[2019-07-24] MEDS: METOPROLOL TARTRATE 25 MG TABLET PO SCH ×2 (08:43→20:36)
[2019-07-24] MEDS: APIXABAN 2.5 MG TABLET PO SCH ×2 (08:43→20:36)
[2019-07-24] MEDS: OXYBUTYNIN XL 10 MG TABLET PO SCH (08:43)
[2019-07-24] MEDS: FUROSEMIDE 20 MG TABLET PO SCH ×2 (08:44→15:51)
[2019-07-24] MEDS: SIMVASTATIN 20 MG TABLET PO SCH (08:44)
[2019-07-24] MEDS: ASPIRIN EC 81 MG TABLET PO SCH (08:44)
[2019-07-24] MEDS: PANTOPRAZOLE 40 MG TABLET PO SCH (08:44)
[2019-07-25] MEDS: PARoxetine 20 MG TABLET PO SCH (09:18)
[2019-07-25] MEDS: PANTOPRAZOLE 40 MG TABLET PO SCH (09:18)
[2019-07-25] MEDS: DILTIAZEM CD 240 MG CAPSULE PO SCH (09:19)
[2019-07-25] MEDS: APIXABAN 2.5 MG TABLET PO SCH (09:19)
[2019-07-25] MEDS: METOPROLOL TARTRATE 25 MG TABLET PO SCH (09:20)
[2019-07-25] MEDS: FUROSEMIDE 20 MG TABLET PO SCH (09:20)
[2019-07-25] MEDS: ASPIRIN EC 81 MG TABLET PO SCH (09:20)
[2019-07-25] MEDS: SIMVASTATIN 20 MG TABLET PO SCH (09:21)
[2019-07-25] MEDS: OXYBUTYNIN XL 10 MG TABLET PO SCH (09:46)
[2019-07-25 12:03] VITALS: BP 154/78
== END 2019-07-25 12:18 | DRG 309 ==
LOC: EDBD → EDUNIT# → N.ED 10:43 → N.EDINP 10:43 → SUATTDRO 14:14 → N.TELES 16:50
PROVIDERS: ADMIT Emergency Medicine; ATTEND Internal Medicine